=== PATIENT | male | born 1955 | race Caucasian/White ===

== ENCOUNTER → 2016-07-26 | Outpatient (CLI) | payer OTHER ==
[~2016-07-26] MED LIST: CIPROFLOXACIN TOP; FARXIGA5 MG PO; GLUCOTROL PO; MELOXICAM15 MG PO; NORVASC10 MG PO; PERCOCET 5-3251 TAB; PRINIVIL20 M1 PO; SIMVASTATIN20 MG PO; XARELTO10 MG PO
--- NOTE | ~2016-07-26 | EKG ---
PATIENT: PRATEEK CHAMBERLAIN UNIT #: [id number] Ventricular Rate: 72 BPM Atrial Rate: 72 BPM P-R Interval: 160 ms QRS Duration: 90 ms Q-T Interval: 364 ms QTC Calculation(Bezet): 398 ms P [place]: 49 degrees Calculated R [place]: -17 degrees Calculated T [place]: 23 degrees Diagnosis Line: Normal sinus rhythm with sinus arrhythmia Diagnosis Line: Normal ECG Diagnosis Line: No previous ECGs available Diagnosis Line: Confirmed by ZOË HERNADEZ MD ([id number]) on 07/26/2016 Diagnosis Line: 5:46:34 PM INTERPRETING MD: MARICARMEN SUGGS
[2016-07-26 10:38] LABS: HEMATOCRIT 49.7 % (38.0-50.0); HEMOGLOBIN 16.3 gm/dL (13.0-16.0); MEAN CELL VOLUME 87.4 FL (83-96); MEAN CORPUSCULAR HEMOGLOBIN 28.7 PG (28-34); MEAN CORPUSCULAR HGB CONC 32.9 g/dL (30-36); MEAN PLATELET VOLUME 8.3 FL (6.5-11.5); RED BLOOD COUNT 5.68 X10e (3.90-5.60); RED CELL DISTRIBUTION WIDTH 13.4 % (11.0-15.5); WHITE BLOOD COUNT 7.5 X10e3 (4.0-10.5)
[2016-07-26 10:40] LABS: URINE APPEARANCE CLEAR; URINE BILIRUBIN NEG (NEG); URINE BLOOD NEG (NEG); URINE COLOR YELLOW; URINE GLUCOSE >1000 MG/DL (NEG); URINE KETONE NEG (NEG); URINE LEUKOCYTE ESTERASE NEG (NEG); URINE NITRATE NEG (NEG); URINE PROTEIN NEG (NEG); URINE SPECIFIC GRAVITY 1.015 (1.003-1.035); URINE UROBILINOGEN 0.2 MG/DL (NEG)
[2016-07-26 10:46] LABS: CULTURE INDICATED? NO; URINE SOURCE CLEAN CATCH
[2016-07-26 11:38] LABS: ALBUMIN SERUM 4.9 g/dL (3.5-5.0); ALKALINE PHOSPHATASE 83 U/L (32-92); ALT (SGPT) 29 U/L (10-40); AST (SGOT) 20 U/L (10-42); BILIRUBIN,TOTAL 0.7 mg/dL (0.2-2.0); BLOOD UREA NITROGEN 25 mg/dL (9-23); BUN/CREATININE RATIO 31.25; CALCIUM SERUM 9.9 mg/dL (8.4-10.2); CARBON DIOXIDE 28 mmol/L (22-31); CHLORIDE 102 mmol/L (100-111); CREATININE SERUM 0.8 mg/dL (0.6-1.4); GLOM FILT RATE Estimated ABOVE60 mL/min (>60); GLUCOSE FASTING 165 mg/dL (70-110); POTASSIUM 4.7 mmol/L (3.5-5.1); PROTEIN TOTAL SERUM 7.9 g/dL (6.0-8.3); SODIUM 135 mmol/L (135-145)
== END | disposition home or self-care (01) ==
LOC: CAMB 09:50
PROVIDERS: Orthopaedic Surgery
DX: Z01.818 Encounter for other preprocedural examination (principal); M19.072 Primary osteoarthritis, left ankle and foot; M21.172 Varus deformity, not elsewhere classified, left ankle; I49.9 Cardiac arrhythmia, unspecified
CPT/HCPCS: 36415; 80053; 81003; 85027; 87070; 93005

== ENCOUNTER 2016-08-07 05:29 | Inpatient (IN) | payer OTHER ==
--- NOTE | ~2016-08-07 | OR ---
Unit #: [id number] #: [id number] Patient: PRATEEK CHAMBERLAIN [id number] [address] [place], [place] [address] [id number] MR#: [id number] NAME: PRATEEK CHAMBERLAIN. ROOM: [facility] Date of Procedure: 08/07/2016 Admission Date: 08/07/2016 Surgeon: Krystal Soriano M.D. : 1955 Attending Physician: Krystal Soriano M.D. OPERATIVE REPORT PREOPERATIVE DIAGNOSES 1. Left ankle degenerative arthritis. 2. Left ankle varus. POSTOPERATIVE DIAGNOSES 1. Left ankle degenerative arthritis. 2. Left ankle varus. PROCEDURES PERFORMED 1. Left total ankle arthroplasty (31420). 2. Left lateral ankle ligamentous Brostrom reconstruction (44334). ASSISTANTS MD Theresa and EDWARD Sosa. ANESTHESIA Popliteal saphenous block and general. IMPLANTS Nick Talaris size 1 tibia, size 1 talus, 8 mm polyethylene insert, Arthrex 5.5 mm diameter corkscrew metal anchor. INDICATIONS FOR SURGERY The patient is a 61-year-old male with end-stage left ankle arthritis and 12 degrees of tibiotalar varus, unresponsive to conservative care to include bracing, medication, physical therapy, and rest. He is now admitted for total ankle arthroplasty. Risks and benefits of fusion versus replacement have been discussed. DESCRIPTION OF PROCEDURE The patient was taken to the operating room following left leg popliteal saphenous block. He was placed in a supine position. General anesthetic was induced. The left ankle was identified as the correct operative extremity during the time-out procedure. The IV antibiotic protocol was followed. The left leg was prepped and draped in the usual sterile fashion. The leg was exsanguinated and the thigh tourniquet inflated to 300 mmHg. A 12 cm anterior longitudinal incision was made over the ankle. The subcutaneous tissue was divided. The superficial peroneal nerve was identified and preserved. The extensor retinaculum was opened longitudinally. The interval between the anterior tibial and extensor Unit #: [id number] #: [id number] Patient: PRATEEK CHAMBERLAIN hallucis longus tendons was entered. The neurovascular bundle was retracted laterally. The joint was opened longitudinally and the joint was exposed with subperiosteal dissection. The power osteotome was then used to remove the anterior tibial spur. A curvilinear anterolateral longitudinal incision was made over the ankle joint. The subcutaneous tissue was divided. The joint capsule was opened. There was a large loose body adjacent to the tip of the fibula and this was excised. The osteophytes on the distal fibula were excised and the osteophytes of the lateral talus were excised. The Nick Talaris tibial alignment guide was then pinned into place into the tibial tuberosity and anterior distal tibia aligning the guide tari with the long axis of the tibia. Rotation was set. The tibia was sized at a size 1, the talus was sized at a size 1. The #1 cutting guide was applied and the distal tibial cut was made with the three drill holes medially and laterally. The anterior half of the distal cut tibia was removed in a piecemeal fashion. The talar pin setting guide was then used to place the talar pin. Position was checked with C-arm fluoroscopy. The posterior talar cutting guide was applied and the posterior talar cut was made. The remaining half of the posterior cut tibial bone was removed. The anterior talar guide was then pinned into place and the anterior neck was milled. The lateral talar cutting guide was then applied and pinned into place. The Chapa saw was used and the lateral talar cut was made. The #1 talar trial fit appropriately. The #1 tibial trial with attached 8 mm spacer was then applied and the three drill holes were placed in the distal tibia, which were connected with the chisel and rasp. All bony debris was then lavaged. The final #1 tibial component was impacted into place. The 8 mm poly was fixed to the #1 tibial component and then tibial component was impacted into place. The ankle still rested in some varus, therefore a complete release of the deep and superficial deltoid ligaments was performed. An Arthrex suture anchor was then placed in the distal fibula. The two attached #2 FiberWire sutures were then used to advance the joint capsule proximally and laterally. The joint capsule was then imbricated with multiple #2 FiberWire ekoihi-[id number]-zfqit sutures. At this point, the ankle dorsiflexion was 5 degrees, plantar flexion was 40 degrees. It was stable both medially and laterally. The heel rested in 2 degrees of valgus. No additional procedures were required. A 3-minute dilute Betadine wash was then applied and then lavaged with saline. The anterior keel hole was bone grafted with local cut bone taken from the distal tibia. The joint capsule was meticulously closed with 2-0 Vicryl. The tourniquet was released. Bleeding was controlled with electrocautery. The extensor retinaculum was meticulously closed with 2-0 Vicryl vcywre-ic-qutnx sutures. Subcutaneous tissue was closed with 3-0 Vicryl. Skin was closed with 3-0 nylon horizontal mattress sutures. Xeroform gauze, dressing, sponges, Webril, and a posterior fiberglass splint were applied. The patient was then transported to the recovery room in stable condition. ESTIMATED BLOOD LOSS Minimal. Unit #: [id number] #: [id number] Patient: PRATEEK CHAMBERLAIN COMPLICATIONS None. SPECIMENS None. TOURNIQUET TIME 1 hour 45 minutes. Dictated byAlexis Schmitz/stephanie TD: 08/07/2016 21:40 JOB #: [id number] OPERATIVE REPORT Page 1 of 1 X Daniel Soriano MD X PROCEDURE OPERATIVE NOTE
--- NOTE | ~2016-08-07 | HP ---
Unit #: [id number] #: [id number] Patient: PRATEEK CHAMBERLAIN [id number] [address] [place], [place] [address] [id number] MR#: [id number] NAME: PRATEEK CHAMBERLAIN. ROOM: Age: Sex: M Admission Date: 08/07/2016 : 1955 Attending Physician: Krystal Soriano M.D. Primary Care Physician: Generic Doctor Not In System HISTORY AND PHYSICAL DATE OF ANTICIPATED ADMISSION/PROCEDURE August 07, 2016 CHIEF COMPLAINT Left ankle pain. HISTORY OF PRESENT ILLNESS The patient is a 60-year-old male with severe left ankle arthritis and varus deformity unresponsive to antiinflammatory medication, shoe inserts, physical therapy, corticosteroid injection, and rest. He has pain with walking and standing. He feels as though his foot is turning over. Standing radiographs demonstrate end-stage arthritis of the ankle with significant varus deformity measuring 12 degrees. The patient has end-stage ankle arthritis. The risks and benefits of ankle fusion versus ankle replacement have been discussed. The patient elects to proceed with ankle replacement. PAST MEDICAL HISTORY 1. Hepatitis B. 2. Noninsulin-dependent diabetes. 3. Hypertension. 4. Pneumonia. PAST SURGICAL HISTORY (1) surgery. HOME MEDICATIONS 1. Amlodipine. 2. Aspirin. 3. Farxiga. 4. Glipizide. 5. Lisinopril. 6. Meloxicam. 7. Simvastatin. ALLERGIES None. SOCIAL HISTORY The patient is a nondrinker. He does smoke. FAMILY HISTORY Bipolar disease, diabetes, breast cancer, depression, hypercholesterolemia, hypertension, and heart disease. Unit #: [id number] #: [id number] Patient: PRATEEK CHAMBERLAIN REVIEW OF SYSTEMS Unremarkable. PHYSICAL EXAMINATION GENERAL: This is a well-developed, well-nourished male in no acute distress. HEENT: Pharynx is clear. NECK: Supple without masses. HEART: Regular sinus rhythm without murmurs or gallops. LUNGS: Clear. ABDOMEN: Soft and nontender without masses or organomegaly. EXTREMITIES: Evaluation of the left ankle demonstrates a normal arch. The heel is in 5 degrees of varus. Left ankle dorsiflexion is zero degrees and plantar flexion 30 degrees. Subtalar inversion 10 degrees and eversion 5 degrees. First MTP joint motion is normal. The patient is maximally tender in the anterior medial left ankle joint. Motor exam is 5+ over 5. Sensation is normal. Pulses are normal. The patient has tenderness over the sinus tarsi of a mild degree. DIAGNOSTIC STUDIES IMAGING: Standing x-rays of the left ankle show [id number] opposition of the medial tibiotalar joint with 12 degrees of tibiotalar varus. The patient has 2 degrees of varus with respect to the longitudinal axis of the tibia. There are large osteophytes in the lateral gutter. Arch parameters are normal on the standing x-rays of the left foot. ADMITTING DIAGNOSES 1. Left ankle degenerative arthritis. 2. Left tibiotalar varus. PLAN The patient is admitted for left total ankle arthroplasty, Brostrom procedure, possible tendon transfer, and possible calcaneal osteotomy. This procedure was described along with the risks of bleeding, infection, nerve damage, need for further surgery in the future, prolonged recovery time, deep venous thrombosis, pulmonary embolism, anesthetic complications, loosening of the prosthesis, infection of the prosthesis, and need for multiple revision surgeries to include ankle fusion. He understands the above risks and agrees to proceed. He also understands that he needs to stop smoking postoperatively and that this will interfere with his ability to heel his wound and lead to postoperative surgical complications. Dictated by Krystal Soriano M.D. [facility]/lala TD: 08/06/2016 22:37 JOB #: [id number] Unit #: [id number] #: [id number] Patient: LIACRYSTALPRATEEK ABRAHAM Radha HISTORY AND PHYSICAL Page 1 of 1 X Daniel Soriano MD HISTORY AND PHYSICAL
--- NOTE | ~2016-08-07 | CO ---
Unit #: [id number] #: [id number] Patient: PRATEEK CHAMBERLAIN [id number] [address] [place], [place] [address] [id number] MR#: [id number] NAME: PRATEEK CHAMBERLAIN. ROOM: [facility] Age: 61 Sex: M Admission Date: 08/07/2016 : 1955 Attending Physician: Krystal Soriano M.D. CONSULTATION REPORT JOB NOTE: VERIFY DICTATOR REASON FOR CONSULTATION Postop medical management of diabetes. HISTORY OF PRESENT ILLNESS The patient is a 60-year-old male with history of severe left ankle arthritis and varus deformity, unresponsive to antiinflammatory medications. He is status post left knee replacement has been placed on medical consultation for the diabetes management. The patient has a history of diabetes mellitus for 15 years. The patient has been well controlled on the medications with Glucotrol and Farxiga. The patient denies any diabetic complications and the patient states the patient was on different medications previously, but that has been discontinued secondary to muscle spasm. denies any fever, chills, nausea, vomiting, retinopathy, or neuropathy. PAST MEDICAL HISTORY History of hepatitis B, noninsulin diabetes mellitus type 2, hypertension. PAST SURGICAL HISTORY History of left ankle replacement. HOME MEDICATIONS He is on Norvasc, Cipro, Farxiga, Glucotrol, lisinopril, meloxicam, and simvastatin. ALLERGIES None. SOCIAL HISTORY The patient denies any history of alcohol or illicit drug abuse. Positive for smoking. FAMILY HISTORY Positive for diabetes. REVIEW OF SYSTEMS 14-point review of systems performed and only pertinent positive findings are described, but remaining are negative. PHYSICAL EXAMINATION GENERAL: The patient is lying on bed, not in acute distress. VITAL SIGNS: Temperature 98.1, pulse 70, respirations 16, blood pressure Unit #: [id number] #: [id number] Patient: PRATEEK CHAMBERLAIN 126/73. HEENT: Head, atraumatic, normocephalic. Pupils are equal, round, and reactive to light and accommodation. Extraocular movements are intact. NECK: Supple. No JVD. LUNGS: Clear to auscultation. No rhonchi. No wheezing. HEART: Regular rate and rhythm. ABDOMEN: Soft. Positive bowel sounds. EXTREMITIES: Status post left knee replacement of the left side with a dressing. NEUROLOGIC: Alert, awake, oriented. No gross focal motor deficit. DIAGNOSTIC STUDIES LABORATORY RESULTS: From 07/26/2016, glucose was 65, BUN 25, creatinine 0.8, sodium 135, potassium 4.7, chloride 102, bicarb 28, calcium 9.9, AST 20, ALT 29, alkaline phosphatase 83. WBC 7.5, hemoglobin 16.3, hematocrit 49.7. UA shows more than 1000 glucose. CARDIOVASCULAR STUDIES: EKG, normal sinus rhythm. ASSESSMENT AND PLAN 1. Left ankle arthritis, status post left ankle replacement. 2. Diabetes mellitus. 3. Hypertension. PLAN Status post left ankle replacement postop day 0. Continue with postop care. The patient will be started on low dose sliding scale and continue with home medication of lisinopril, blood pressure medications, and continue with DVT prophylaxis. Repeat CBC, BMP, and hemoglobin A1c in the morning and further recommendations to follow as more lab results are available. Dictated by... Alexis Tubbs/stephanie TD: 08/07/2016 23:37 JOB #: [id number] CONSULTATION REPORT Page 1 of 1 X X CONSULTATION REPORT
--- NOTE | ~2016-08-07 | DS ---
Unit #: [id number] #: [id number] Patient: PRATEEK CHAMBERLAIN [id number] [address] [place], [place] [address] [id number] MR#: [id number] NAME: PRATEEK CHAMBERLAIN. ROOM: [facility] Age: 61 Sex: M Admission Date: 08/07/2016 : 1955 Discharge Date: 08/09/2016 Attending Physician: Krystal Soriano M.D. Primary Care Physician: Generic Doctor Not In System DISCHARGE SUMMARY ADMISSION DIAGNOSES/REASON FOR ADMISSION Left ankle arthritis and varus deformity, unresponsive to conservative management. PREOPERATIVE DIAGNOSES 1. Left ankle degenerative joint disease. 2. Left ankle varus deformity. POSTOPERATIVE DIAGNOSES 1. Left ankle degenerative joint disease. 2. Left ankle varus deformity. DISCHARGE DIAGNOSES 1. Left ankle degenerative joint disease. 2. Left ankle varus deformity. CHIEF COMPLAINT Left ankle pain. HISTORY OF PRESENT ILLNESS The patient is a 60-year-old male with a severe left ankle arthritis with underlying varus deformity that has been unresponsive to anti-inflammatory medication, shoe inserts, physical therapy, steroid injections, and rest. He has been having significant pain with walking and standing and although he feels as if his foot is turning over. X-rays demonstrate significant end-stage arthrosis with significant ankle varus deformity of about 12 degrees. Given the fact that the patient has end-stage arthritis and has failed all conservative management, the risks, benefits, and complications were discussed with him for an ankle fusion versus an ankle replacement, and the patient would like to proceed with an ankle replacement. HOSPITAL COURSE The patient was admitted to the hospital on 08/07/2016. He was taken to the operating room where a left total ankle replacement was placed into the patient's left lower extremity. The patient tolerated the procedure and anesthesia well. The patient was subsequently admitted to the orthopedic [facility] after the surgery for observation. On postoperative day #1, the patient's pain was controlled. He worked with physical therapy. On postoperative day #2, his vital signs were stable. All of his labs were within normal limits. His cast and dressings were changed on postoperative day #2. His incisions were all clean, dry, and intact. There was no evidence of any drainage or signs of infection. Subsequently, the patient was discharged on postoperative day #2 to home Unit #: [id number] #: [id number] Patient: PRATEEK CHAMBERLAIN with his family in healthy and satisfactory condition. DISCHARGE DISPOSITION Home. DISCHARGE CONDITION Stable. MEDICATIONS Xarelto 10 mg, take one tablet by mouth once daily for 2 weeks for DVT prophylaxis; Percocet 5/325 mg, take one tablet by mouth every 6 hours as needed for pain, dispensed #40 with no refills. FOLLOWUP The patient is going to follow up with Dr. Giovanny Soriano in 10 days in his office for postoperative care. Dictated by... Terell Sosa M.D. for Alexis Aiken/stephanie TD: 08/10/2016 03:25 JOB #: [id number] DISCHARGE SUMMARY Page 1 of 1 X X DISCHARGE SUMMARY
[~2016-08-07 05:29] MED LIST changes: -PERCOCET 5-3251 TAB; -XARELTO10 MG PO
[2016-08-08 03:52] LABS: HEMATOCRIT 44.3 % (38.0-50.0); HEMOGLOBIN 14.6 gm/dL (13.0-16.0); MEAN CELL VOLUME 87.4 FL (83-96); MEAN CORPUSCULAR HEMOGLOBIN 28.9 PG (28-34); MEAN PLATELET VOLUME 8.7 FL (6.5-11.5); RED BLOOD COUNT 5.07 X10e (3.90-5.60); RED CELL DISTRIBUTION WIDTH 13.3 % (11.0-15.5); WHITE BLOOD COUNT 12.3 X10e3 (4.0-10.5)
[2016-08-08 04:16] LABS: BLOOD UREA NITROGEN 15 mg/dL (9-23); BUN/CREATININE RATIO 16.66; CARBON DIOXIDE 27 mmol/L (22-31); CHLORIDE 102 mmol/L (100-111); CREATININE SERUM 0.9 mg/dL (0.6-1.4); GLOM FILT RATE Estimated ABOVE60 mL/min (>60); GLUCOSE FASTING 151 mg/dL (70-110); POTASSIUM 4.2 mmol/L (3.5-5.1); SODIUM 138 mmol/L (135-145)
[2016-08-09 04:48] LABS: BASOPHIL% 0.2 % (0-2.5); EOSINOPHIL# 0.1 X10e3 (0-0.7); EOSINOPHIL% 0.5 % (0.0-7.0); HEMATOCRIT 43.6 % (38.0-50.0); HEMOGLOBIN 14.6 gm/dL (13.0-16.0); LYMPHOCYTE% 7.2 % (17.0-45.0); MEAN CELL VOLUME 86.7 FL (83-96); MEAN CORPUSCULAR HGB CONC 33.5 g/dL (30-36); MEAN PLATELET VOLUME 8.9 FL (6.5-11.5); MONOCYTE# 1.3 X10e3 (0-1.0); MONOCYTE% 9.8 % (3.0-12.0); NEUTROPHIL# 11.2 X10e3 (1.5-7.1); NEUTROPHIL% 82.3 % (40-75); PLATELET COUNT 200 X10e3 (140-420); RED BLOOD COUNT 5.03 X10e (3.90-5.60); RED CELL DISTRIBUTION WIDTH 13.1 % (11.0-15.5); WHITE BLOOD COUNT 13.6 X10e3 (4.0-10.5)
[2016-08-09 04:50] LABS: DIFF IND NO
[2016-08-09 05:44] LABS: BLOOD UREA NITROGEN 14 mg/dL (9-23); CALCIUM SERUM 9.4 mg/dL (8.4-10.2); CARBON DIOXIDE 24 mmol/L (22-31); CHLORIDE 98 mmol/L (100-111); GLOM FILT RATE Estimated ABOVE60 mL/min (>60); GLUCOSE FASTING 218 mg/dL (70-110); MAGNESIUM 1.9 mg/dL (1.6-3.0); POTASSIUM 3.9 mmol/L (3.5-5.1); SODIUM 134 mmol/L (135-145)
[2016-08-09] MEDS ORDERED: XARELTO10 MG PO (11:37)
[2016-08-09] MEDS ORDERED: PERCOCET 5-3251 TAB (11:40)
== END 2016-08-09 13:45 | disposition home or self-care (01) | DRG 470 ==
LOC: CSUR 05:29 → CPACUOF 10:36 → C4B 11:45
PROVIDERS: Internal Medicine; Orthopaedic Surgery
PROC: 0MN Bursae and Ligaments, Release (ICD-10-PCS; 2016-08-07)
PROC: 0SRG0JZ Replacement of Left Ankle Joint with Synthetic Substitute, Open Approach (ICD-10-PCS; principal; 2016-08-07 07:30)
DX: M19.072 Primary osteoarthritis, left ankle and foot (principal); B19.10 Unspecified viral hepatitis B without hepatic coma; I10 Essential (primary) hypertension; M21.172 Varus deformity, not elsewhere classified, left ankle; E11.9 Type 2 diabetes mellitus without complications; Z79.84 Long term (current) use of oral hypoglycemic drugs; F17.210 Nicotine dependence, cigarettes, uncomplicated; Z82.49 Family history of ischemic heart disease and other diseases of the circulatory system
CPT/HCPCS: 80048; 82947; 83036; 83735; 85025; 85027; 94010; 94760; 94761; 97116; 97162; C1713; C1874; J0690; J1815; J2250; J2270; J2405; J3010